=== PATIENT | male | born 1990 | race Caucasian/White ===

== ENCOUNTER 2022-09-08 00:27 | Emergency (ER) | payer BC, OTHER ==
[~2022-09-08] VITALS: Ht 182.9 cm; Wt 77.6 kg
[2022-09-08 00:34] VITALS: BP_SYST 142
--- NOTE | 2022-09-08 00:37 | NUR ---
Patient triaged and placed in RM 4. VSS and patient appears in no acute distress at this time. Accompanied by SELF and MD notified of need for MSE. REPORT GIVEN TO JOVANNY LOUIS.
--- NOTE | 2022-09-08 00:43 | NUR ---
Dr. Pyle at bedside examining the patient.
[2022-09-08] MEDS ORDERED: PSEU120T57 PO (00:48)
[2022-09-08] MEDS ORDERED: IBUP-1971 PO (00:55)
[2022-09-08 01:08] VITALS: BP_SYST 142
--- NOTE | 2022-09-08 01:10 | NUR ---
Patient given written and verbal discharge instructions and verbalizes understanding. ER MD discussed with patient the results and treatment provided. Patient in stable condition. ID arm band removed. IV catheter removed intact and dressing applied, no active bleeding. Rx of ibuprofen and pseudoephedrine given. Patient educated on pain management and to follow up with PMD. Pain Scale 0/10. Opportunity for questions provided and answered. Medication side effect fact sheet provided.
== END 2022-09-08 01:08 | disposition home or self-care (01) ==
LOC: SED 00:27
DX: H92.01 Otalgia, right ear (principal); R09.81 Nasal congestion; Z79.899 Other long term (current) drug therapy
CPT/HCPCS: 99283